=== PATIENT | female | born 1995 | race African-American/Black ===

== ENCOUNTER 2019-02-11 23:14 | Emergency (ER) | payer MEDICAID ==
[~2019-02-11] VITALS: Ht 170.2 cm; Wt 103.0 kg
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
[2019-02-11] MEDS ORDERED: ACETAMINOPHEN 500 MG TABLET ONE (23:47)
[2019-02-11] MEDS ORDERED: MAALOX/HYOSCYAMINE/LIDOCAINE 45 ML BTL ONE (23:47)
[2019-02-12] MEDS ORDERED: ACETAMINOPHEN 500 MG TABLET PO ONE
[2019-02-12] MEDS ORDERED: SODIUM CHLORIDE FLUSH 10ML SYR IVF ONE
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
--- NOTE | 2019-02-12 00:21 | NUR ---
MERLIN RN: REPORT GIVEN FROM REMEDIOS KELLOGG. PRIMARY RNUMA IS ON LUNCH. NO ACUTE DISTRESS NOTED. VS STABLE. WILL CONTINUE TO [facility] FOR PRIMARY RN.
--- NOTE | 2019-02-12 00:37 | NUR ---
REPORT GIVEN TO REMEDIOS EATON
--- NOTE | 2019-02-12 00:42 | NUR ---
Note nestor in EDM - 02/12/19 at 0045 by CONSTANCE Patient/Caregiver given discharge instructions and they have confirmed that they understand the instructions. Patient ambulatory with steady gait. PT PROVIDED WITH DC PAPERWORK. OFFERED A RIDE DUE TO ADMINISTRATION OF ATIVAN. PT STATES HIS CAR IS IN THE PARKING LOT. HE HAS NO WHERE TO GO, AND WILL SLEEP IN HIS CAR UNTIL DAYLIGHT. HE IS AWARE HE SHOULD NOT DRIVE AFTER RECEIVING ATIVAN.
[2019-02-12] MEDS ORDERED: HYDROcodone/APAP 5/325 TABLET ONE (00:50)
--- NOTE | 2019-02-12 00:57 | NUR ---
PT MEDICATED PER EMAR. 5 RIGHTS ADDRESSED. 2ND LITER OF FLUIDS ADMINISTERED DUE TO PT REMAINING TACHY
[2019-02-12] MEDS ORDERED: HYDROcodone/APAP 5/325 TABLET PO ONE (01:00)
[2019-02-12] MEDS ORDERED: SODIUM CHLORIDE 0.9% 1,000ML IVBOLUS ONE ×2 (01:00)
[2019-02-12 01:29] VITALS: BP 117/50
--- NOTE | 2019-02-12 01:52 | NUR ---
Patient/Caregiver given discharge instructions and they have confirmed that they understand the instructions. Patient ambulatory with steady gait.
[2019-02-13] MEDS ORDERED: AMOX-291 PO (00:06)
== END 2019-02-12 00:45 | disposition home or self-care (01) ==
LOC: ED 23:59
DX: J03.90 Acute tonsillitis, unspecified (principal); J02.9 Acute pharyngitis, unspecified
CPT/HCPCS: 87081; 87880; 93005; 96360; 99284; J7030

== ENCOUNTER 2019-02-12 23:59 | Emergency (ER) | payer MEDICAID ==
[~2019-02-12] VITALS: Ht 170.2 cm; Wt 104.0 kg
[2019-02-13] MEDS ORDERED: AMOX-291 PO (00:06)
[2019-02-13] MEDS ORDERED: ONDANSETRON 2MG/ML, 2ML IVPush ONE (00:30)
[2019-02-13] MEDS ORDERED: MORPHINE SULFATE 4 MG/ML, 1ML IVPush ONE (00:30)
[2019-02-13] MEDS ORDERED: KETOROLAC 30 MG/1 ML IVPush ONE (00:30)
[2019-02-13] MEDS ORDERED: SODIUM CHLORIDE FLUSH 10ML SYR IVF ONE (00:30)
[2019-02-13] MEDS ORDERED: SODIUM CHLORIDE 0.9% 1,000ML IVBOLUS ONE (00:30)
[2019-02-13] MEDS ORDERED: IBUPROFEN 200 MG TABLET PO ONE (00:30)
[2019-02-13] MEDS ORDERED: IBUPROFEN 200 MG TABLET ONE (00:40)
[2019-02-13] MEDS ORDERED: ONDANSETRON 2MG/ML, 2ML ONE (00:40)
[2019-02-13] MEDS ORDERED: KETOROLAC 30 MG/1 ML ONE (00:40)
[2019-02-13] MEDS ORDERED: MORPHINE SULFATE 4 MG/ML, 1ML ONE (00:40)
[2019-02-13] MEDS ORDERED: LIDOCAINE-MPF 1%, 2ML ONE (00:56)
[2019-02-13] MEDS ORDERED: LIDOCAINE 2% VISCOUS 15 ML UDC MM ONE (01:00)
--- NOTE | 2019-02-13 01:17 | NUR ---
pt reports that throat feeling better after vscous lido, temp coming down
[2019-02-13 01:25] LABS: MONOSCREEN Negative (Negative)
[2019-02-13] MEDS ORDERED: CEFTRIAXONE 250 MG ONE (01:40)
[2019-02-13] MEDS ORDERED: AZITHROMYCIN 250 MG TABLET ONE (01:40)
--- NOTE | 2019-02-13 01:45 | NUR ---
pt medicated per nov. pt resting comfortably in [facility] at this time;
[2019-02-13] MEDS ORDERED: AZITHROMYCIN 500 MG TABLET PO ONE (02:00)
[2019-02-13] MEDS ORDERED: CEFTRIAXONE 250 MG IM ONE (02:00)
--- NOTE | 2019-02-13 02:56 | NUR ---
PT D/C WITH D/C SUMMARY AND SCRIPTS. ALL QUESTIONS ANSWERED. PT AMBULATES TO REGISTRATION DESK WITH STEADY GAIT FOR D/C HOME. PT VSS UPON D/C. PT DENIES ANY OTHER NEEDS PERTAINING TO THIS VISIT.
[2019-02-13 02:57] VITALS: BP 127/70
== END 2019-02-13 02:59 | disposition home or self-care (01) ==
LOC: ED 02-13 00:15
DX: J02.9 Acute pharyngitis, unspecified (principal)
CPT/HCPCS: 36415; 86308; 87806; 94640; 96372; 96374; 96375; 99283; J0696; J1885; J2270; J2405; J7030; G0475

== ENCOUNTER 2019-02-15 16:00 | Inpatient (IN) | payer MEDICAID, OTHER ==
[~2019-02-15] VITALS: Ht 170.2 cm; Wt 101.0 kg
[~2019-02-15 16:00] MED LIST: AMOX-291 PO
[2019-02-15] MEDS ORDERED: SODIUM CHLORIDE 0.9% 1,000ML IVBOLUS ONE (17:00)
[2019-02-15] MEDS ORDERED: MORPHINE SULFATE 4 MG/ML, 1ML IVPush PRN (17:00)
[2019-02-15] MEDS ORDERED: SODIUM CHLORIDE FLUSH 10ML SYR IVF ONE (17:00)
[2019-02-15] MEDS ORDERED: ONDANSETRON 2MG/ML, 2ML IVPush ONE (17:00)
[2019-02-15 17:11] LABS: BASOPHILS # (AUTO) 0.05 x10^3/uL (0-0.1); BASOPHILS % (AUTO) 0 % (0-1); EOSINOPHILS # (AUTO) 0.06 x10^3/uL (0-0.4); EOSINOPHILS % (AUTO) 1 % (1-7); LYMPHOCYTES # (AUTO) 2.14 x10^3/uL (1-3.4); LYMPHOCYTES % (AUTO) 20 % (22-44); MD NO; MEAN CORPUSCULAR HEMOGLOBIN 28.3 pg (27.0-34.8); MEAN CORPUSCULAR HGB CONC 32.9 g/dL (32.4-35.8); MEAN PLATELET VOLUME 6.8 fL (7.4-10.4); MONOCYTES # (AUTO) 1.19 x10^3/uL (0.2-0.8); MONOCYTES % (AUTO) 11 % (2-9); NEUTROPHILS # (AUTO) 7.28 x10^3/uL (1.8-6.8); NEUTROPHILS % (AUTO) 68 % (42-75); PLATELET COUNT 435 x10^3/uL (130-400); RED BLOOD COUNT 5.64 x10^6/uL (3.82-5.3); RED CELL DISTRIBUTION WIDTH 13.5 % (9.6-15.2)
[2019-02-15 17:14] LABS: CULTURE INDICATED? YES; MICROSCOPIC INDICATED
[2019-02-15 17:16] LABS: ANION GAP 9 mmol/L (5-15); CALCIUM 9.3 mg/dL (8.5-10.1); CHLORIDE 109 mmol/L (98-107); CREATININE 0.81 mg/dL (0.55-1.02)
[2019-02-15] MEDS ORDERED: MORPHINE SULFATE 4 MG/ML, 1ML ONE (17:23)
[2019-02-15] MEDS ORDERED: ONDANSETRON 2MG/ML, 2ML ONE (17:23)
[2019-02-15 17:58] LABS: HCG UR SG 1.038 (1.003-1.030)
[2019-02-15] MEDS ORDERED: OMNIPAQUE 350 MG/ML, 100ML BOTTLE ONE (18:03)
--- NOTE | 2019-02-15 18:33 | NUR ---
PA in for recheck, pt and parent agree to plan (ENT consult, probable admit), pt reports decreased level of pain/tolerable level of pain after med adminstration.
[2019-02-15] MEDS ORDERED: SODIUM CHLORIDE 0.9% 1,000 ML IV ONE (19:00)
[2019-02-15] MEDS ORDERED: AMPICILLIN/SULBACTAM 3 GM in SODIUM CHLORIDE 0.9% 100 ML IV ONE (19:00)
[2019-02-15] MEDS ORDERED: PIPERACILLIN/TAZO/PMX 3.375GM 50 ML IV ONE ×3 (19:00→20:00)
[2019-02-15] MEDS ORDERED: DEXAMETHASONE 4 MG/ML, 5ML IVPush ONE (19:00)
[2019-02-15] MEDS ORDERED: SODIUM CHLORIDE FLUSH 10ML SYR IVF PRN (19:00)
[2019-02-15] MEDS ORDERED: DEXAMETHASONE 4 MG/ML, 5ML ONE (19:25)
[2019-02-15] MEDS ORDERED: PIPERACILLIN/TAZO/PMX 3.375GM 50 ML ONE (19:25)
--- NOTE | 2019-02-15 19:33 | NUR ---
ENT MD at bedside, fluids infusing, decadron given, per MD, cleocin to be ordered, hold zosyn. awaiting cleocin orders
--- NOTE | 2019-02-15 19:45 | NUR ---
Per ER MD pt to have zosyn to cover UTI, ent md notified. ok to give zosyn, report to floor rn, pt ready for transport.
[2019-02-15 20:15] VITALS: BP 121/82
[2019-02-15] MEDS ORDERED: IBUP-1222 PO (20:28)
[2019-02-15] MEDS ORDERED: OXYcodone IR 5MG TABLET PO PRN (20:30)
[2019-02-15] MEDS: DEXAMETHASONE 4 MG/ML, 5ML IV SCH (20:30)
[2019-02-15] MEDS: OXYcodone 5 MG/5 ML ORAL.SOL UDC PO PRN (20:44)
[2019-02-15] MEDS: CLINDAMYCIN PMX 900MG/50ML 50 ML IV SCH (22:00)
[2019-02-16] MEDS: LACTATED RINGERS 1,000 ML IV SCH ×4 (00:26→22:20)
[2019-02-16] MEDS: OXYcodone 5 MG/5 ML ORAL.SOL UDC PO PRN ×6 (01:05→22:52)
[2019-02-16 03:59] VITALS: BP 120/79
[2019-02-16] MEDS: DEXAMETHASONE 4 MG/ML, 5ML IV SCH ×3 (04:57→20:25)
[2019-02-16] MEDS: CLINDAMYCIN PMX 900MG/50ML 50 ML IV SCH ×3 (06:03→21:58)
[2019-02-16 06:49] VITALS: BP 117/77
[2019-02-16 12:02] LABS: CLOSTRIDIUM DIFFICILE ANTIGEN NEGATIVE; CLOSTRIDIUM DIFFICILE TOXIN NEGATIVE (Negative)
[2019-02-16 12:31] VITALS: BP 127/86
[2019-02-16] MEDS ORDERED: DEXAMETHASONE 4 MG/ML, 5ML IV SCH (20:00)
[2019-02-16 20:08] VITALS: BP 127/81
[2019-02-16] MEDS: CEFTRIAXONE PMX 1GM/50ML 50 ML IV SCH (22:52)
[2019-02-17] MEDS: OXYcodone 5 MG/5 ML ORAL.SOL UDC PO PRN ×2 (00:24→04:51)
[2019-02-17 02:06] VITALS: BP 119/79
[2019-02-17] MEDS: DEXAMETHASONE 4 MG/ML, 5ML IV SCH ×2 (04:35→14:07)
[2019-02-17 05:41] LABS: BASOPHILS % (AUTO) 0 % (0-1); EOSINOPHILS % (AUTO) 0 % (1-7); LYMPHOCYTES # (AUTO) 1.69 x10^3/uL (1-3.4); LYMPHOCYTES % (AUTO) 10 % (22-44); MD NO; MEAN CORPUSCULAR HEMOGLOBIN 28.3 pg (27.0-34.8); MEAN CORPUSCULAR HGB CONC 32.9 g/dL (32.4-35.8); MEAN PLATELET VOLUME 6.9 fL (7.4-10.4); MONOCYTES # (AUTO) 1.08 x10^3/uL (0.2-0.8); MONOCYTES % (AUTO) 6 % (2-9); NEUTROPHILS # (AUTO) 14.73 x10^3/uL (1.8-6.8); NEUTROPHILS % (AUTO) 84 % (42-75); PLATELET COUNT 471 x10^3/uL (130-400); RED BLOOD COUNT 5.16 x10^6/uL (3.82-5.3); RED CELL DISTRIBUTION WIDTH 13.5 % (9.6-15.2)
[2019-02-17] MEDS: CLINDAMYCIN PMX 900MG/50ML 50 ML IV SCH ×2 (05:51→14:07)
[2019-02-17 08:08] VITALS: BP 115/77
[2019-02-17] MEDS: IBUPROFEN 200 MG TABLET PO PRN ×3 (09:03→23:28)
[2019-02-17] MEDS: CEFTRIAXONE PMX 1GM/50ML 50 ML IV SCH (11:14)
[2019-02-17] MEDS: LACTATED RINGERS 1,000 ML IV SCH ×2 (11:15→22:10)
[2019-02-17 12:30] VITALS: BP 128/89
[2019-02-17] MEDS: VALACYCLOVIR 500MG TABLET PO SCH ×2 (17:02→22:10)
[2019-02-17 19:58] VITALS: BP 120/78
[2019-02-17] MEDS: DOXYCYCLINE 100MG TABLET PO SCH (22:10)
[2019-02-18] MEDS ORDERED: OXYcodone 5 MG/5 ML ORAL.SOL UDC PO ONE
[2019-02-18] MEDS: IBUPROFEN 200 MG TABLET PO PRN ×3 (01:41→16:54)
[2019-02-18 02:16] VITALS: BP 127/86
[2019-02-18] MEDS: DEXAMETHASONE 4 MG/ML, 5ML IV SCH ×2 (02:23→15:33)
[2019-02-18] MEDS: LACTATED RINGERS 1,000 ML IV SCH ×2 (06:32→20:00)
[2019-02-18] MEDS: VALACYCLOVIR 500MG TABLET PO SCH ×3 (06:32→23:14)
[2019-02-18 06:55] VITALS: BP 121/78
[2019-02-18] MEDS: DOXYCYCLINE 100MG TABLET PO SCH ×2 (08:43→20:08)
[2019-02-18] MEDS ORDERED: CEFTRIAXONE PMX 1GM/50ML 50 ML IV SCH (11:00)
[2019-02-18] MEDS: CEFTRIAXONE PMX 2GM/50ML 50 ML IV SCH (11:50)
[2019-02-18] MEDS: ACETAMINOPHEN 325 MG TABLET PO PRN (20:08)
[2019-02-18 20:15] VITALS: BP 113/74
[2019-02-18] MEDS: ONDANSETRON 2MG/ML, 2ML IV PRN (23:11)
[2019-02-19] MEDS: IBUPROFEN 200 MG TABLET PO PRN ×3 (01:02→19:57)
[2019-02-19 02:23] VITALS: BP 113/71
[2019-02-19] MEDS: LACTATED RINGERS 1,000 ML IV SCH ×2 (05:24→12:40)
[2019-02-19] MEDS: ACETAMINOPHEN 325 MG TABLET PO PRN ×2 (06:17→21:23)
[2019-02-19] MEDS: VALACYCLOVIR 500MG TABLET PO SCH ×3 (06:17→21:23)
[2019-02-19 07:45] VITALS: BP 128/81
[2019-02-19] MEDS: DOXYCYCLINE 100MG TABLET PO SCH ×2 (08:49→21:23)
[2019-02-19] MEDS: CEFTRIAXONE PMX 2GM/50ML 50 ML IV SCH (11:55)
[2019-02-19 13:14] VITALS: BP 122/80
[2019-02-19 19:26] VITALS: BP 130/88
[2019-02-19] MEDS: ONDANSETRON 2MG/ML, 2ML IV PRN (22:51)
[2019-02-20 01:22] VITALS: BP 108/74
[2019-02-20] MEDS: LACTATED RINGERS 1,000 ML IV SCH ×2 (02:20→10:20)
[2019-02-20 04:57] LABS: BASOPHILS # (AUTO) 0.04 x10^3/uL (0-0.1); BASOPHILS % (AUTO) 1 % (0-1); EOSINOPHILS # (AUTO) 0.15 x10^3/uL (0-0.4); EOSINOPHILS % (AUTO) 2 % (1-7); LYMPHOCYTES # (AUTO) 3.33 x10^3/uL (1-3.4); LYMPHOCYTES % (AUTO) 36 % (22-44); MD NO; MEAN CORPUSCULAR HEMOGLOBIN 28.1 pg (27.0-34.8); MEAN CORPUSCULAR HGB CONC 32.5 g/dL (32.4-35.8); MEAN CORPUSCULAR VOLUME 86.5 fL (80-100); MEAN PLATELET VOLUME 6.9 fL (7.4-10.4); MONOCYTES # (AUTO) 0.92 x10^3/uL (0.2-0.8); MONOCYTES % (AUTO) 10 % (2-9); NEUTROPHILS # (AUTO) 4.78 x10^3/uL (1.8-6.8); NEUTROPHILS % (AUTO) 52 % (42-75); PLATELET COUNT 425 x10^3/uL (130-400); RED CELL DISTRIBUTION WIDTH 13.1 % (9.6-15.2)
[2019-02-20] MEDS: VALACYCLOVIR 500MG TABLET PO SCH (06:04)
[2019-02-20 07:25] VITALS: BP 113/82
[2019-02-20] MEDS: DOXYCYCLINE 100MG TABLET PO SCH (08:17)
[2019-02-20] MEDS: IBUPROFEN 200 MG TABLET PO PRN (08:18)
[2019-02-20] MEDS ORDERED: VALA500T PO (10:20)
[2019-02-20] MEDS ORDERED: ONDA4TAB7 PO (10:20)
[2019-02-20 12:27] LABS: ALBUMIN 2.8 g/dL (3.4-5.0); ANION GAP 7 mmol/L (5-15); CALCIUM 8.8 mg/dL (8.5-10.1); CHLORIDE 106 mmol/L (98-107)
[2019-02-20 12:32] LABS: ALANINE AMINOTRANSFERASE 22 U/L (12-78); ALKALINE PHOSPHATASE 72 U/L (45-117); BILIRUBIN,TOTAL 0.6 mg/dL (0.2-1.0); TOTAL PROTEIN 7.1 g/dL (6.4-8.2)
== END 2019-02-20 12:45 | disposition home or self-care (01) | DRG 872 ==
LOC: ED 17:25 → EDIP 19:00 → 4NOR 19:54 → DCLOUNGE 02-20 12:22
PROVIDERS: ADMIT Otolaryngology; ATTEND Otolaryngology
DX: A41.9 Sepsis, unspecified organism (principal); N39.0 Urinary tract infection, site not specified; J03.00 Acute streptococcal tonsillitis, unspecified; E86.0 Dehydration; J02.0 Streptococcal pharyngitis; F12.90 Cannabis use, unspecified, uncomplicated
CPT/HCPCS: 36415; 70491; 80048; 80053; 81001; 81025; 85025; 86308; 86592; 86632; 86695; 86696; 86738; 87081; 87086; 87324; 87491; 87591; 87633; 87806; 87880; 96374; 96375; 99285; G0378; J0696; J1100; J2405; J2543; Q9967; G0475; J2270; J7030; J7120

== ENCOUNTER 2019-07-27 10:11 | Emergency (ER) | payer MEDICAID ==
[~2019-07-27] VITALS: Ht 170.2 cm; Wt 102.1 kg
[~2019-07-27 10:11] MED LIST changes: +IBUP-1222 PO; +ONDA4TAB7 PO; +VALA500T PO
[2019-07-27 10:22] VITALS: BP 138/85
--- NOTE | 2019-07-27 10:49 | NUR ---
Discharge instructions discussed with patient including when to return to emergency department, patient verbalizes understanding. Prescriptions provided with instruction for use, patient verbalizes understanding.
== END 2019-07-27 10:53 | disposition home or self-care (01) ==
LOC: ED 10:51
DX: N61.1 Abscess of the breast and nipple (principal)
CPT/HCPCS: 99283

== ENCOUNTER 2019-09-27 00:16 | Emergency (ER) | payer OTHER, MEDICAID ==
[~2019-09-27] VITALS: Ht 170.2 cm; Wt 103.0 kg
[2019-09-27] MEDS ORDERED: IBUPROFEN 600 MG TABLET ONE (00:53)
[2019-09-27] MEDS ORDERED: IBUPROFEN 600 MG TABLET PO ONE (01:00)
[2019-09-27 01:01] VITALS: BP 136/70
[2019-09-27 01:01] LABS: CULTURE INDICATED? YES; HCG UR SG 1.024 (1.003-1.030); MICROSCOPIC AUTO
--- NOTE | 2019-09-27 01:03 | NUR ---
Patient presents to ER for blood in urine with painful urination and increased frequency since yesterday. Patient has L pelvic and flank pain. Patient is in NAD. Respirations even and unlabored.
[2019-09-27] MEDS ORDERED: CEFDINIR 300 MG CAPSULE ONE (01:07)
--- NOTE | 2019-09-27 01:17 | NUR ---
Patient discharge instructions given. All questions and concerns addressed. Patient ambulatory with a steady gait. Belongings with patient.
[2019-09-27] MEDS ORDERED: CEFDINIR 300 MG CAPSULE PO ONE (01:30)
== END 2019-09-27 01:19 | disposition home or self-care (01) ==
LOC: ED 01:13
DX: N10 Acute pyelonephritis (principal); R11.0 Nausea; I10 Essential (primary) hypertension
CPT/HCPCS: 81001; 81025; 87077; 87086; 87186; 99283

== ENCOUNTER 2020-11-08 10:39 | Emergency (ER) | payer MEDICAID, OTHER ==
[~2020-11-08] VITALS: Ht 170.2 cm; Wt 105.1 kg
[~2020-11-08 10:39] MED LIST changes: -VALA500T PO; +VALA500T8 PO
--- NOTE | 2020-11-08 10:52 | NUR ---
dopster: C-collar placed in triage
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
[2020-11-08] MEDS ORDERED: METHOCARBAMOL 750 MG TABLET ONE (11:17)
[2020-11-08] MEDS ORDERED: KETOROLAC 30 MG/1 ML ONE (11:17)
[2020-11-08] MEDS ORDERED: METHOCARBAMOL 750 MG TABLET PO ONE (11:30)
[2020-11-08] MEDS ORDERED: KETOROLAC 30 MG/1 ML IM ONE (11:30)
--- NOTE | 2020-11-08 11:36 | NUR ---
Back from CT. Medicated per eMAR. No other needs.
[2020-11-08 12:45] VITALS: BP 112/68
[2020-11-08] MEDS ORDERED: NEOSPORIN OINT. PKT 1 PACKET ONE ×2 (12:47→12:48)
--- NOTE | 2020-11-08 12:55 | NUR ---
Patient/Caregiver given discharge instructions and they have confirmed that they understand the instructions. Patient ambulatory with steady gait.
== END 2020-11-08 13:18 | disposition home or self-care (01) ==
LOC: ED 13:03
DX: S16.1XXA Strain of muscle, fascia and tendon at neck level, initial encounter (principal); S29.012A Strain of muscle and tendon of back wall of thorax, initial encounter; V89.2XXA Person injured in unspecified motor-vehicle accident, traffic, initial encounter; Y93.89 Activity, other specified; Y92.89 Other specified places as the place of occurrence of the external cause; Y99.8 Other external cause status
CPT/HCPCS: 72072; 72125; 96372; 99284; J1885

== ENCOUNTER 2021-01-10 14:36 | Emergency (ER) | payer OTHER ==
[~2021-01-10] VITALS: Ht 170.2 cm; Wt 107.0 kg
--- NOTE | 2021-01-10 14:46 | NUR ---
TRIAGE: PATIENT ARRIVES WITH CHEST PRESSURE, SORE THROAT, COUGH, BODY ACHES, AND SOB. TRAVELED TO PAST WEEKEND.
--- NOTE | 2021-01-10 15:07 | NUR ---
PT AMBULATORYTO ROOM FROM [facility], ALL MONITORS PLACED, VSS, CALL LIGHT W/I REACH. PROVIDER EVAL PENDING
[2021-01-10 15:50] LABS: BASOPHILS % (AUTO) 0 % (0-1); EOSINOPHILS % (AUTO) 1 % (1-7); LYMPHOCYTES % (AUTO) 14 % (22-44); MEAN CORPUSCULAR HEMOGLOBIN 28.9 pg (27.0-34.8); MEAN CORPUSCULAR HGB CONC 33.6 g/dL (32.4-35.8); MEAN PLATELET VOLUME 6.9 fL (7.4-10.4); MONOCYTES % (AUTO) 7 % (2-9); NEUTROPHILS % (AUTO) 78 % (42-75); PLATELET COUNT 305 x10^3/uL (130-400); RED BLOOD COUNT 4.83 x10^6/uL (3.82-5.3); RED CELL DISTRIBUTION WIDTH 12.8 % (9.6-15.2)
[2021-01-10 15:51] LABS: MD NO
[2021-01-10 15:57] VITALS: BP 112/70
--- NOTE | 2021-01-10 15:58 | NUR ---
TASK RN: PT RESTING IN [place] NOTED. DENIES NEEDS/PAIN. PT UPDATED TO POC (RESULTS/RECHECK) AND DEMONSTRATES UNDERSTANDING.
[2021-01-10 16:02] LABS: ANION GAP 4 mmol/L (5-15); CALCIUM 8.6 mg/dL (8.5-10.1); CHLORIDE 112 mmol/L (98-107); CREATININE 0.79 mg/dL (0.55-1.02)
[2021-01-10 16:03] LABS: ALBUMIN 3.5 g/dL (3.4-5.0)
[2021-01-10 16:06] LABS: TROPONIN I < 0.015 ng/mL (0.000-0.045)
[2021-01-10] MEDS ORDERED: KETOROLAC 30 MG/1 ML IM ONE (16:30)
--- NOTE | 2021-01-10 16:39 | NUR ---
DR PEREZ AT BEDSIDE. TEST RESULTS REVIEWED AND POC FOR D/C DISCUSSED.
--- NOTE | 2021-01-10 16:45 | NUR ---
Patient/Caregiver given discharge instructions and they have confirmed that they understand the instructions. Patient ambulatory with steady gait.
== END 2021-01-10 17:06 | disposition home or self-care (01) ==
LOC: ED 17:00
DX: R07.89 Other chest pain (principal); R06.02 Shortness of breath; R05 Cough; I10 Essential (primary) hypertension; R19.7 Diarrhea, unspecified
CPT/HCPCS: 36415; 71045; 80048; 82040; 84484; 84703; 85025; 85379; 93005; 99285

== ENCOUNTER 2021-04-15 01:11 | Emergency (ER) | payer OTHER ==
[~2021-04-15] VITALS: Ht 170.2 cm; Wt 103.6 kg
[2021-04-15 01:15] VITALS: BP 130/78
--- NOTE | 2021-04-15 02:48 | NUR ---
AMBULATORY WITH STEADY GAIT FROM LOBBY TO ED ROOM 22
[2021-04-15] MEDS ORDERED: KETOROLAC 30 MG/1 ML IM ONE (03:00)
[2021-04-15] MEDS ORDERED: KETOROLAC 30 MG/1 ML ONE (04:00)
--- NOTE | 2021-04-15 05:01 | NUR ---
RECEIVED DISCHARGE PAPERS. PT GIVEN F/U AND D/C INSTRUCTIONS WITH PRESCRIPTIONS AND SHE V/U. PT AMBULATED TO DISCHARGE DESK.
== END 2021-04-15 05:02 | disposition home or self-care (01) ==
LOC: ED 02:52
DX: U07.1 COVID-19 (principal); J06.9 Acute upper respiratory infection, unspecified; I10 Essential (primary) hypertension
CPT/HCPCS: 71045; 96372; 99283; J1885

== ENCOUNTER 2021-05-06 15:16 | Emergency (ER) | payer OTHER ==
[~2021-05-06] VITALS: Ht 170.2 cm; Wt 104.0 kg
[2021-05-06] MEDS ORDERED: ONDANSETRON 2MG/ML, 2ML IVPush ONE (16:00)
[2021-05-06] MEDS ORDERED: SODIUM CHLORIDE FLUSH 10ML SYR IVF ONE (16:00)
[2021-05-06] MEDS ORDERED: SODIUM CHLORIDE 0.9% 1,000ML IVBOLUS ONE (16:00)
[2021-05-06] MEDS ORDERED: MORPHINE SULFATE 4 MG/ML, 1ML ONE ×2 (16:22→17:50)
[2021-05-06] MEDS ORDERED: ONDANSETRON 2MG/ML, 2ML ONE (16:23)
[2021-05-06 16:27] LABS: BASOPHILS % (AUTO) 1 % (0-1); EOSINOPHILS % (AUTO) 1 % (1-7); LYMPHOCYTES % (AUTO) 22 % (22-44); MEAN CORPUSCULAR HEMOGLOBIN 28.6 pg (27.0-34.8); MEAN CORPUSCULAR HGB CONC 33.8 g/dL (32.4-35.8); MEAN PLATELET VOLUME 6.9 fL (7.4-10.4); MONOCYTES % (AUTO) 7 % (2-9); NEUTROPHILS % (AUTO) 69 % (42-75); PLATELET COUNT 333 x10^3/uL (130-400); RED BLOOD COUNT 5.24 x10^6/uL (3.82-5.3); RED CELL DISTRIBUTION WIDTH 13.5 % (9.6-15.2)
[2021-05-06 16:31] LABS: MICROSCOPIC INDICATED
[2021-05-06 16:37] LABS: ALANINE AMINOTRANSFERASE 56 U/L (12-78); ALBUMIN 3.5 g/dL (3.4-5.0); ANION GAP 7 mmol/L (5-15); CHLORIDE 110 mmol/L (98-107); CREATININE 0.67 mg/dL (0.55-1.02)
--- NOTE | 2021-05-06 16:37 | NUR ---
LABS SENT, UA SENT, PT STILL AT US, WILL MEDICATE ON RETURN.
[2021-05-06 16:41] LABS: ALKALINE PHOSPHATASE 108 U/L (45-117); BILIRUBIN,TOTAL 1.4 mg/dL (0.2-1.0); TOTAL PROTEIN 7.5 g/dL (6.4-8.2)
[2021-05-06] MEDS: MORPHINE SULFATE 4 MG/ML, 1ML IVPush PRN ×2 (16:49→17:54)
--- NOTE | 2021-05-06 16:51 | NUR ---
MEDS PER NOV. PT TO CT.
[2021-05-06] MEDS ORDERED: KETOROLAC 30 MG/1 ML ONE (17:49)
[2021-05-06] MEDS ORDERED: KETOROLAC 30 MG/1 ML IVPush ONE (18:00)
--- NOTE | 2021-05-06 18:57 | NUR ---
PT UP FOR RECHECK.
[2021-05-06 19:37] VITALS: BP 132/79
== END 2021-05-06 19:39 | disposition home or self-care (01) ==
LOC: ED 19:33
DX: R10.31 Right lower quadrant pain (principal); R11.0 Nausea; I10 Essential (primary) hypertension; E66.9 Obesity, unspecified; Z68.35 Body mass index [BMI] 35.0-35.9, adult
CPT/HCPCS: 36415; 74176; 76830; 80053; 81001; 83690; 84703; 85025; 87086; 96361; 96374; 96375; 96376; 99285; J1885; J2270; J2405; J7030